=== PATIENT | male | born 1990 | race Caucasian/White ===

== ENCOUNTER 2024-09-25 08:07 | Day surgery (SDC) | payer OTHER ==
[2024-09-24 08:49] VITALS: BMI 36.6
[2024-09-25 08:24] VITALS: RESP 16; TEMP 97.8
[2024-09-25 09:40] VITALS: BP 112/74; PULSE 76
== END 2024-09-25 09:46 | disposition home or self-care (01) ==
LOC: FASU-ENDO 08:07
PROVIDERS: ATTEND Internal Medicine Gastroenterology
PROC: 0DB68ZX Excision of Stomach, Via Natural or Artificial Opening Endoscopic, Diagnostic (ICD-10-PCS; 2024-09-25)
PROC: 0DB98ZX Excision of Duodenum, Via Natural or Artificial Opening Endoscopic, Diagnostic (ICD-10-PCS; principal; 2024-09-25 09:12)
DX: K29.50 Unspecified chronic gastritis without bleeding (principal); R10.13 Epigastric pain; R14.0 Abdominal distension (gaseous); R68.81 Early satiety
CPT/HCPCS: 88305-TC; 88342-TC